=== PATIENT | female | born 2000 | race Two or more races ===

== ENCOUNTER 2024-10-01 08:35 | Emergency (ER) | payer MEDICAID, SELFPAY ==
[2024-10-01 08:43] VITALS: BP 134/88; PULSE 88; RESP 16; TEMP 36.9; O2SAT 99; BMI 29.7
--- NOTE | 2024-10-01 09:02 | XR_ITS ---
Examination: Pelvic ultrasound, transabdominal, complete Technique: Transabdominal ultrasound of the pelvis performed using grayscale imaging Date and time of exam: October 01, 2019 5:10 AM Indications: Irregular heavy menses beginning August 2024 Findings: Uterus 8.2 x 3.5 x 4.5 cm retroverted Endometrial stripe 0.9 cm Right ovary 4.0 x 2.0 x 2.70 arterial flow 23 x 20 mm cyst Left ovary 2.8 x 2.5 x 1.5 cm arterial flow No fluid in the cul-de-sac Impression: Small right cyst 23 x 20 x 20 mm
[2024-10-01 09:07] LABS: Basophils % (Auto) 1 % (0-2.5); Eosinophils # (Auto) 0.1 Thou/mm3 (0.0-0.5); Eosinophils % (Auto) 2 % (0-10); Hematocrit 37.5 % (36.0-46.0); Hemoglobin 12.5 g/dL (12.0-16.0); Immature Granulocytes % (Auto) 0 % (0-0); Immature Granulocytes Auto 0.01 Thou/mm3 (0.00-0.00); Lymphocytes # (Auto) 2.1 Thou/mm3 (1.0-4.8); Lymphocytes % (Auto) 33 % (10-50); Mean Corpuscular HGB Conc 33.3 g/dl (31.0-37.0); Mean Corpuscular Hemoglobin 28.2 pg (25.0-35.0); Mean Corpuscular Volume 85 fL (80-100); Monocytes # (Auto) 0.5 Thou/mm3 (0.0-0.8); Monocytes % (Auto) 7 % (0-12); Neutrophils # (Auto) 3.6 Thou/mm3 (1.8-7.7); Neutrophils % (Auto) 57 % (37-80); Nucleated Red Blood Cell % 0 /100 WBC (0); Platelet Count 279 Thou/mm3 (140-440); RDW Standard Deviation 39.8 fL (36.4-46.3); Red Blood Count 4.44 Miln/mm3 (4.00-5.20); White Blood Count 6.3 Thou/mm3 (3.6-11.0)
[2024-10-01 09:17] LABS: Partial Thromboplastin Time 28.9 Seconds (22.0-36.0)
[2024-10-01 09:21] LABS: HCG,Qualitative Serum Negative
[2024-10-01 09:30] LABS: Anion Gap 6 (7-16); BUN/Creatinine Ratio 13 Ratio (12-20); Bilirubin,Total 0.9 mg/dL (0.3-1.2); Blood Urea Nitrogen 10 mg/dL (9-23); Calcium 9.7 mg/dL (8.3-10.6); Carbon Dioxide 27.6 mMol/L (20.0-31.0); Chloride 104 mMol/L (98-107); Creatinine (Component) 0.8 mg/dL (0.6-1.3); Glucose 104 mg/dL (74-106); Osmolality,Calculated 274 (275-295); Potassium 4.5 mMol/L (3.4-5.1); Sodium 138 mMol/L (136-145); eGFR > 60 See Note
[2024-10-01 09:31] LABS: Alanine Aminotransferase 12 U/L (10-49); Albumin, Serum 4.6 gm/dL (3.5-5.0); Albumin/Globulin Ratio 1.6 (1.2-2.2); Alkaline Phosphatase 64 U/L (46-116); Aspartate Amino Transferase 14 U/L (0-34); Calcium (Corrected) 9.7 mg/dL (8.5-10.1); Globulin 2.9 gm/dL (2.3-3.5); Total Protein 7.5 gm/dL (5.7-8.2)
--- NOTE | 2024-10-01 10:27 | PD.EDVAGBL ---
ED OB Contraction Preg RMI/HPI General Chief complaint: Vaginal Bleeding Stated complaint: 12 DAYS OF HEAVY MENSTRUAL CYCLE Time Seen by Provider: 10/01/24 08:37 Arrival date/time: 10/01/24 08:35 24-year-old female presents emergency department complains of vaginal bleeding ongoing x 12 days patient reports her last menstrual cycle lasted 8 days patient ports no fever nausea vomiting abdominal pain or pelvic pain Limitations: no limitations Related Data Previous Rx's ?Medication ?Instructions ?Recorded medroxyprogesterone 10 mg tablet 20 mg (2 x 10 mg) PO QDAY 7 days 10/01/24 (Provera) #14 tabs Allergies Allergy/AdvReac Type Severity Reaction Status Date / Time No Known Allergies Allergy Verified 10/01/24 08:37 Review of Systems Review of Systems Systems Reviewed: All systems reviewed, normal except as documented Constitutional Constitutional: Reports system reviewed and no additional complaints, except as documented, Denies fever(s) and Denies headache(s) Eyes Eyes: Reports system reviewed and no additional complaints, except as documented and Denies blurry vision ENT Ears, Nose, Mouth, and Throat: Reports system reviewed and no additional complaints, except as documented, Denies headache(s), Denies nasal congestion and Denies nasal discharge Cardiovascular Cardiovascular: Reports system reviewed and no additional complaints, except as documented, Denies chest pain and Denies dyspnea Respiratory Respiratory: Reports system reviewed and no additional complaints, except as documented, Denies chest congestion, Denies cough and Denies dyspnea Gastrointestinal Gastrointestinal: Reports system reviewed and no additional complaints, except as documented and Denies abdominal pain Genitourinary Genitourinary: Reports system reviewed and no additional complaints, except as documented and Reports abnormal vaginal bleeding Integumentary/Breasts Skin/Breast: Reports system reviewed and no additional complaints, except as documented and Denies rash Neurologic Neurologic: Reports system reviewed and no additional complaints, except as documented, Reports as per HPI and Denies headache(s) Past Medical History Past Medical History NEUROLOGIC: Negative Neurological Disorders CARDIAC: Negative Cardiac Disorders ED Exam General Limitations: Present no limitations General appearance: Present alert and in no apparent distress Head Head exam: Present atraumatic Eye Eye exam: Present normal appearance, PERRL and EOMI ENT ENT exam: Present normal exam, normal oropharynx and mucous membranes moist Neck Neck exam: Present normal inspection, full ROM and trachea midline Chest Chest inspection: Present normal inspection and symmetric chest wall rise Respiratory Respiratory exam: Present normal lung sounds bilaterally Cardiovascular Cardiovascular exam: Present regular rate, normal rhythm and normal heart sounds Abdominal Exam Abdominal exam: Present soft and normal bowel sounds; Absent distention, tenderness, guarding, rebound or rigidity Extremities Exam Extremities exam: Present normal inspection and full ROM Back Exam Back exam: Present normal inspection and full ROM Neurological Exam Neurological exam: Present alert, oriented X3 and CN II-XII intact Psychiatric Psychiatric exam: Present normal affect and normal mood Skin Skin exam: Present warm, dry, intact and normal color Course Quality Measures none Orders Category Date Time Status Pelvic Exam X1 Care 10/01/24 10:26 Completed US pelvic complete Stat Exams 10/01/24 09:02 Completed CBC Stat Lab 10/01/24 08:51 Completed Comprehensive Metabolic Panel Stat Lab 10/01/24 08:51 Completed HCG,Qualitative Serum Stat Lab 10/01/24 08:51 Completed Partial Thromboplastin Time Stat Lab 10/01/24 08:51 Completed Prothrombin Time with INR Stat Lab 10/01/24 08:51 Completed Vital Signs Vital signs: Vital Signs Temperature 98.5 F 10/01/24 08:43 Pulse Rate 88 10/01/24 08:43 Respiratory Rate 16 10/01/24 08:43 Blood Pressure 134/88 H 10/01/24 08:43 Pulse Oximetry (%) 99 10/01/24 08:43 Oxygen Delivery Method Room Air 10/01/24 08:43 O2 saturation 99% room air within normal limits Vaginal Bleeding MDM Narrative MDM Narrative: 24-year-old female presents emergency department complains of vaginal bleeding ongoing x 12 days patient reports her last menstrual cycle lasted 8 days patient ports no fever nausea vomiting abdominal pain or pelvic pain Patient reports he does not go to the doctor and has no regular follow-up On exam patient does not appear ill or toxic patient well-appearing Lab work as well as ultrasound obtained Lab work ultrasound unremarkable Vaginal exam performed with female authorization coordinator no acute abnormality noted patient does have bleeding equipment today. Not excessive Consultation: I spoke with Caren Romero states patient should be started on Provera 20 mg x 1 week I spoke with Mayda Aguiar in the clinic and she states she will follow-up with the patient on an outpatient basis At time of discharge patient in no distress Patient data External records reviewed:: [facility] previous records Clinical information provided by:: patient Social determinants that could affect healthcare access:: none Patient has the following chronic illnesses:: None How is presenting disease/condition affected by chronic disease/condition?: no chronic disease Evaluation data The following diagnostics were reviewed and interpreted by me:: lab results and radiology exam(s) Lab and/or radiology exams considered but not ordered:: Labs and radiology obtained Interpretation Summary: Reviewed by me Medications / Prescriptions Medications or Prescriptions considered but not ordered:: Rx given Medication administrations:: Rx given Consultations Consultation(s) initiated? (list below): Yes Consultation #1 (Physician, Specialty, Details): Dr. Caren Romero [employer] SAL[employer] DIRECT[employer] Diagnosis Vaginal Bleeding Differential Diagnosis: missed , threatened and vaginal bleeding Most likely diagnosis given after review of the tests above:: Vaginal bleeding Admission Indicated Admission indicated?: not indicated Admission Request Was there a request for admission?: No Disposition Plan Disposition Plan: Discharge Discharge Attestation Discharge Attestation: The patient and all family members were given an opportunity to ask questions and understood the discharge instructions. Discharge instructions specifically effects, indications for sooner follow up or return to the emergency department, and the expected course of current diagnosis. Patient condition: Stable Discharge Plan Plan Patient Disposition: HOME (Self Care) Disposition Comment: Stable Prescriptions/Referrals Prescriptions/Med Rec: New medroxyprogesterone [Provera] 10 mg tablet 20 mg PO QDAY 7 Days Qty: 14 0RF Referrals: [facility] SUPERVISOR BRAIDING,Mayda Rosado SUPERVISOR BRAIDING [Nurse Practitioner] - 10/02/24 No Primary/Family,Physician [Primary Care Provider] - In 1 week Problem List Clinical Impression: Dysfunctional uterine bleeding Patient/Caregiver Discharge Instructions Education Materials: ED Dysfunctional Uterine Bleeding Additional Instructions: Please follow-up with [facility] as discussed for worsening symptoms return immediately Print Language: Tanzanian Stand Alone Forms: Catrina Award Info., Patient Portal Info Letter PA/MICHAEL Supervising Physician PA/MICHAEL Supervising Physician: Dr. andersen
== END 2024-10-01 10:48 | disposition home or self-care (01) ==
PROVIDERS: Nurse Practitioner Primary Care; Emergency Provider Emergency Medicine
DX: N93.8 Other specified abnormal uterine and vaginal bleeding (principal)
CPT/HCPCS: 36415; 76856; 80053; 84703; 85025; 85610; 85730; 99284

== ENCOUNTER → 2024-10-03 | Outpatient (BNVA) | payer MEDICAID, SELFPAY | END | disposition home or self-care (01) | PROVIDERS: PCP Nurse Practitioner Family; Referring Provider Nurse Practitioner Family; Visit Provider Nurse Practitioner Family | DX: Z76.89 Persons encountering health services in other specified circumstances (principal); N93.8 Other specified abnormal uterine and vaginal bleeding; Z71.2 Person consulting for explanation of examination or test findings | CPT/HCPCS: 99213 ==

== ENCOUNTER → 2024-10-19 | Outpatient (BNVA) | payer MEDICAID, SELFPAY | END | disposition home or self-care (01) | PROVIDERS: PCP Nurse Practitioner Family; Referring Provider Nurse Practitioner Family; Visit Provider Nurse Practitioner Family | DX: Z00.8 Encounter for other general examination (principal) | CPT/HCPCS: 99215 ==

== ENCOUNTER → 2024-11-06 | Outpatient (BNVA) | payer MEDICAID, SELFPAY | END | disposition home or self-care (01) | PROVIDERS: PCP Nurse Practitioner Family; Referring Provider Nurse Practitioner Family; Visit Provider Nurse Practitioner Family | DX: N93.8 Other specified abnormal uterine and vaginal bleeding (principal); Z71.2 Person consulting for explanation of examination or test findings; E55.9 Vitamin D deficiency, unspecified; B95.1 Streptococcus, group B, as the cause of diseases classified elsewhere | CPT/HCPCS: 99213 ==

== ENCOUNTER → 2024-11-17 | Outpatient (BNVA) | payer MEDICAID, SELFPAY | END | disposition home or self-care (01) | PROVIDERS: PCP Nurse Practitioner Primary Care; Referring Provider Nurse Practitioner Primary Care; Visit Provider Nurse Practitioner Primary Care | DX: Z01.411 Encounter for gynecological examination (general) (routine) with abnormal findings (principal); R82.90 Unspecified abnormal findings in urine | CPT/HCPCS: 81001; 99214; Q0091 ==

== ENCOUNTER → 2024-11-29 | Outpatient (BNVA) | payer MEDICAID, SELFPAY | END | disposition home or self-care (01) | PROVIDERS: PCP Nurse Practitioner Primary Care; Referring Provider Nurse Practitioner Primary Care; Visit Provider Nurse Practitioner Primary Care | DX: R87.612 Low grade squamous intraepithelial lesion on cytologic smear of cervix (LGSIL) (principal); Z71.2 Person consulting for explanation of examination or test findings; R82.90 Unspecified abnormal findings in urine | CPT/HCPCS: 99212 ==